=== PATIENT | male | born 1935 | race Caucasian/White ===

== ENCOUNTER → 2016-10-03 | Outpatient (CLI) | payer BC ==
[~2016-10-03] MED LIST: ATOR10TA82 PO; BRIM0.159 OPB; BRIM0.1S OPB; DOCU100T7 PO; DUTA0.5C PO; HYDR-5688 PO; HYT/2 PO; MULT-506 PO; OMEP40CA41 PO; TIMO0.5S2 OP
[2016-10-03 15:16] LABS: CALCIUM 9.3 mg/dl (8.5-10.1)
[2016-10-03 15:23] LABS: ALT/SGPT 22 U/L (12-78); AST/SGOT 18 U/L (15-37); BLOOD UREA NITROGEN 13 mg/dl (7-18); BUN/CREATININE RATIO 11.8 (10-20); CARBON DIOXIDE 28 mmol/L (21-32); CHLORIDE 109 mmol/L (98-107); GLUCOSE 100 mg/dl (70-99); POTASSIUM 4.1 mmol/L (3.5-5.1); SODIUM 141 mmol/L (136-145)
[2016-10-03 15:32] LABS: ALB/GLOB RATIO 1.2 (0.9-2); ALKALINE PHOSPHATASE 70 U/L (45-117); FERRITIN 100.9 ng/ml (8.0-388.0); TOTAL IRON BINDING CAPACITY 233 mcg/dl (250-450)
--- NOTE | 2016-10-08 08:50 | CODING QUERY MEDICAL NECESSITY ---
CQSUPPORTING DIAGNOSIS NEEDED A supporting diagnosis is required for the test/procedure performed on this patient in order for us to be reimbursed by the patient's insurance. Please provide a supporting diagnosis for the following test/procedure listed below next to the test name along with your signature. *If there is no additional diagnosis for this patient that would support the following test/procedure please document that below next to the test/procedure. Test(s)/Procedure(s) that require a supporting diagnosis: DOS 10/03/16 VITAMIN B12 Provider Signature: Date: Thank you Opal Toribio [employer] Once completed, please kindly fax back to [phone] For questions please call [phone]
== END | disposition home or self-care (01) ==
LOC: C.LABBC 09:59
PROVIDERS: ATTEND Family Medicine
DX: R41.89 Other symptoms and signs involving cognitive functions and awareness (principal); I10 Essential (primary) hypertension; D64.9 Anemia, unspecified

== ENCOUNTER → 2016-11-05 | Outpatient (CLI) | payer BC ==
[~2016-11-05] MED LIST changes: +GADAVIST IV PRN
--- NOTE | 2016-11-06 08:18 | DIAGNOSTIC IMAGING REPORT ---
MRI OF THE ABDOMEN WITH AND WITHOUT CONTRAST PANCREAS PROTOCOL CLINICAL HISTORY: Pancreatic mass. COMPARISON STUDY: Abdominal CTs March 28, 2015 and August 11, 2015. TECHNIQUE: Utilizing a 1.5 Yanni magnet and dedicated coil, multiplanar, multiecho imaging of the abdomen was performed pre and postcontrast administration. Post contrast imaging was performed utilizing dynamic enhancement. Injection of 9 cc of Gadavist IV was uneventful. FINDINGS: Pancreatic glandular atrophy is again noted. There is no pancreatic or biliary ductal dilatation. A 2.5 x 2.1 cm lobulated T2 hyperintense nonenhancing lesion arising from the pancreatic tail is only minimally increased in size since CT of March 28, 2015 when it measured 2.3 x 2.1 cm. There are numerous additional smaller cystic pancreatic lesions. In retrospect, these were likely present on prior CT. There are no enhancing pancreatic lesions. The liver, right adrenal gland and spleen are normal. A 1.2 cm left adrenal nodule is unchanged since prior exam. This is benign given stability. There is no upper abdominal adenopathy or ascites. Numerous T2 hyperintense nonenhancing bilateral renal lesions reflect cysts. IMPRESSION: 1. 2.5 x 2.1 cm lobulated cystic pancreatic tail lesion with minimal increase in size since exam of March 28, 2015. This suggests a side branch IPMN and has benign imaging characteristics. Numerous additional smaller cystic pancreatic lesions likely also reflect IPMNs. No pancreatic ductal dilatation. 2. Numerous renal cysts. Electronically signed by: Rodriguez Main M.D. 11/06/2016 8:17 AM Dictated Date/Time: 11/05/2016 4:33 PM
== END | disposition home or self-care (01) ==
LOC: C.MRI 13:54
PROVIDERS: ATTEND Internal Medicine Hematology & Oncology
DX: D13.6 Benign neoplasm of pancreas (principal)

== ENCOUNTER → 2016-12-27 | Outpatient (CLI) | payer BC ==
[~2016-12-27] MED LIST changes: -ATOR10TA82 PO; +ATOR10TA88 PO; -GADAVIST IV PRN
--- NOTE | 2016-12-27 11:52 | DIAGNOSTIC IMAGING REPORT ---
ABDOMEN 2VIEW W/PA CHEST RTN CLINICAL HISTORY: K59.00 [id number] pain. Constipation. COMPARISON STUDY: 03/30/2015 FINDINGS: Lungs are clear. Mild tortuosity thoracic aorta. Mild increase in fecal load throughout the colon. No evidence for fecal impaction. A component of fecal stasis may be present. As shape scoliosis of the lumbar spine. IMPRESSION: 1. Negative chest. 2. Moderate increase in fecal load within the colon consistent with a component of fecal stasis. 3. No evidence for rectal fecal impaction. The above report was generated using voice recognition software. It may contain grammatical, syntax or spelling errors. Electronically signed by: Campos Orellana M.D. 12/27/2016 11:51 AM Dictated Date/Time: 12/27/2016 11:49 AM
== END | disposition home or self-care (01) ==
LOC: C.RAD1850 11:30
PROVIDERS: ATTEND Physician Assistant
DX: K59.00 Constipation, unspecified (principal)

== ENCOUNTER → 2017-01-01 | Outpatient (CLI) | payer BC ==
[~2017-01-01] MED LIST changes: +OPTIRAY 320 IV PRN
--- NOTE | 2017-01-01 13:42 | DIAGNOSTIC IMAGING REPORT ---
ABD/PELVIS IV AND ORAL CONT HISTORY: 81 years-old Male R19.4 Change in bowel [id number] Abdominal [id number] COMPARISON: CT abdomen 08/11/2015, MR of the abdomen 11/05/2016, CT abdomen and pelvis 03/28/2015 TECHNIQUE: Multiple axial CT images of the abdomen and pelvis were obtained following the intravenous administration of 92 mL Optiray 320. Oral contrast was also used. A dose lowering technique was used consistent with the principals of [place]. FINDINGS: There is minimal bibasilar atelectasis and a subsegmental distribution. Thin-walled cysts are noted within the right lung base. There is no pneumoperitoneum. The imaged inferior cardiac chambers are unremarkable with a trace pericardial effusion. Gallbladder is mildly contracted. The liver, spleen and right adrenal gland are unremarkable. There is nodular thickening of the left adrenal gland which is unchanged. Severe pancreatic atrophy is again noted with a lobulated low attenuating 2.6 x 2.1 x 2.2 cm lesion of the pancreatic tail which appears stable from comparison. Multiple low attenuating lesions of the kidneys bilaterally are seen suggesting cysts, largest of which involves the superior pole right kidney, 2.6 x 2.5 cm. No renal calculi or hydronephrosis. Prostate is enlarged with central calcifications. There is a small diverticulum along the right lateral aspect of the urinary bladder, 1.7 x 0.7 cm. Additional smaller diverticula are also noted suggesting sequela of chronic bladder outlet obstruction. There is moderate atherosclerosis of the abdominal aorta. No bulky retroperitoneal adenopathy. Moderate volume of formed stool is again seen throughout the colon. Scattered noninflamed colonic diverticula are noted. Again seen is twisting with decreased caliber of the mid sigmoid colon which is a chronic finding. No associated obstruction. There is a small fat filled periumbilical hernia, diastases 1.6 cm. There is convex left curvature of the lumbar spine with multilevel advanced degenerative changes present. IMPRESSION: 1. No acute intra-abdominal or intrapelvic abnormality identified. No bowel obstruction. 2. Colonic diverticulosis without diverticulitis. 3. Stable appearance of the lobulated cystic-appearing lesion of the pancreatic tail suggesting sidebranch IPMN as seen on comparison MR of the abdomen. 4. Prostamegaly with evidence of chronic bladder outlet obstruction. The above report was generated using voice recognition software. It may contain grammatical, syntax or spelling errors. Electronically signed by: Galindo Hogan M.D. 01/01/2017 1:40 PM Dictated Date/Time: 01/01/2017 1:02 PM
== END | disposition home or self-care (01) ==
LOC: C.CTS 10:18
PROVIDERS: ATTEND Physician Assistant
DX: R19.4 Change in bowel habit (principal); R10.9 Unspecified abdominal pain; K57.30 Diverticulosis of large intestine without perforation or abscess without bleeding

== ENCOUNTER → 2017-01-07 | Day surgery (SDC) | payer BC ==
[2017-01-01 15:09] VITALS: Ht 180.3 cm; Wt 88.2 kg
[~2017-01-07] VITALS: Ht 180.3 cm; Wt 88.2 kg
[~2017-01-07] MED LIST changes: -BRIM0.159 OPB; -HYDR-5688 PO; +LIDOCAINE HCL 2% 2 ML VIAL (20MG/ML) ONE; -OMEP40CA41 PO; -OPTIRAY 320 IV PRN; +PHENYLEPHRINE 100MCG/ML 5ML SYR ONE; +PROPOFOL IV EMULSION 10 MG/ML 20 ML VIAL IV ONE; +SODIUM CHLORIDE 0.9% 500ML 500 ML IV ONE
--- NOTE | 2017-01-07 09:26 | Endo History and Physical ---
History & Physical Date of Service: Jan 07, 2017. Chief Complaint: Abdominal pain, change in bowel habits, abnormal ct scan Referring Physician: Dr. Feliz Roberts History of Present Illness 81 yo CM who presents for colonoscopy secondary to abdominal pain, change in bowel habits and abnormal CT Scan. Past Medical History High Cholesterol, Hypertension Past Surgical History Hx Cardiac Surgery: No Hx Internal Defibrillator: No Hx Pacemaker: No Hx Abdominal Surgery: No Hx of Implantable Prosthesis: No Hx Post-Op Nausea and Vomiting: No Hx Cancer Surgery: No Hx Thoracic Surgery: No Hx Orthopedic: Yes (RT/LEFT TKA) Hx Urinary Tract Surgery: Yes (LITHOTRIPSY) Family History None Social History Smoking Status: Former Smoker Hx Substance Use: No Hx Alcohol Use: No Allergies Coded Allergies: No Known Allergies (Verified , 01/01/17) Current Medications Reported Home Medications Medications Dose Route/Sig Max Daily Dose Days Date Category Timoptic-Xe 0.5% Oph (Timolol Maleate (Ophth)) 0.5 % Racheal 1 Drops OP DAILY 01/01/17 Reported Hytrin (Terazosin HCl) 2 Mg Cap 2 Mg PO QAM 01/01/17 Reported Avodart (Dutasteride) 0.5 Mg Cap 0.5 Mg PO QAM 01/01/17 Reported Stool Softener (Docusate Sodium) 100 Mg Tab 1 Tab PO QAM 01/01/17 Reported Multivitamin (Multivitamins) Tab 1 Tab PO QAM 01/01/17 Reported Lipitor (Atorvastatin Calcium) 10 Mg Tab 10 Mg PO QAM 01/01/17 Reported Alphagan P Oph (Brimonidine Tartrate) 0.1 % Racheal 1 Drop OPB DAILY 01/01/17 Reported Vital Signs Weight (Kilograms): 88.18 Height (Feet): 5 Height (Inches): 11 Date Time Temp Pulse Resp B/P (MAP) Pulse Ox O2 Delivery O2 Flow Rate FiO2 01/07/17 09:10 36.4 68 18 117/81 (93) 98 Room Air Physical Exam General Appearance: WD/WN, no apparent distress Respiratory/Chest: Auscultation: breath sounds normal Cardiovascular: Heart Auscultation: RRR Abdomen: Bowel Sounds: normal Inspection & Palpation: soft, non-distended, no tenderness, guarding & rebound Assessment and Plan Assessment: 81 yo CM who presents for colonoscopy secondary to abdominal pain, change in bowel habits and abnormal CT Scan. Plan: Proceed with colonoscopy.
--- NOTE | 2017-01-07 09:54 | Discharge Instructions ---
Endoscopy Patient Instructions Date / Procedure(s) Performed Jan 07, 2017. Colonoscopy Allergy Information Coded Allergies: No Known Allergies (Verified , 01/01/17) Discharge Date / Findings Jan 07, 2017. Colon polyp Diverticulosis Internal hemorrhoids Medication Instructions OK to resume all medications today as prescribed Reported Home Medications Medications Dose Route/Sig Max Daily Dose Days Date Category Timoptic-Xe 0.5% Oph (Timolol Maleate (Ophth)) 0.5 % Racheal 1 Drops OP DAILY 01/01/17 Reported Hytrin (Terazosin HCl) 2 Mg Cap 2 Mg PO QAM 01/01/17 Reported Avodart (Dutasteride) 0.5 Mg Cap 0.5 Mg PO QAM 01/01/17 Reported Stool Softener (Docusate Sodium) 100 Mg Tab 1 Tab PO QAM 01/01/17 Reported Multivitamin (Multivitamins) Tab 1 Tab PO QAM 01/01/17 Reported Lipitor (Atorvastatin Calcium) 10 Mg Tab 10 Mg PO QAM 01/01/17 Reported Alphagan P Oph (Brimonidine Tartrate) 0.1 % Racheal 1 Drop OPB DAILY 01/01/17 Reported Provider Instructions Activity Restrictions - No exercising or heavy lifting for 24 hours. - Do not drink alcohol the day of the procedure. - Do not drive a car or operate machinery until the day after the procedure. - Do not make any important decisions or sign important papers in 24 hours after the procedure. Following Day: - Return to full activity which may include returning to work/school. Diet Start your diet with liquids and light foods (jello, soup, juice, toast). Then eat your usual diet if not nauseated. Treatment For Common After Affects For mild abdominal pain, bloating, or excessive gas: - Rest - Eat lightly - Lie on right side Follow-Up Information Follow-up with Dr. Feliz Roberts as scheduled Anesthesia Information What You Should Know You have had a procedure that required some medicine to reduce anxiety and discomfort. This treatment is called moderate sedation. After receiving the treatment, you may be sleepy, but you will be able to breathe on your own. The effects of the treatment may last for several hours. Follow these instructions along with Activity/Diet recommendations noted above: * Do NOT do anything where dizziness or clumsiness would be dangerous. * Rest quietly at home today, then you can be up and about tomorrow. * Have a responsible person stay with you the rest of today. * You may have had an I.V. today. If so, you may take the dressing off later today. Recommendations Call your doctor if: * Trouble breathing * Continuous vomiting for more than 24 hours * Temperature above 101 degrees * Severe abdominal pain or bloating * Pain not relieved by pain medicine ordered * There is increased drainage or redness from any incision * A large amount of rectal bleeding greater than 2-3 tablespoons. (If you had a polyp/s removed or have hemorrhoids, a small amount of blood - from the rectum is to be expected.) * You have any unanswered questions or concerns. IN THE EVENT OF A SERIOUS EMERGENCY, GO TO THE NEAREST EMERGENCY ROOM Your discharge instructions were prepared by provider Yaya Mendoza. Patient Instructions Signature Page Piyush Rios Patient (or Guardian) Signature/Date: I have read and understand the instructions given to me by my caregivers. Caregiver/RN/Doctor Signature/Date: The above-named patient and/or guardian has received patient instructions on this date. + Original Patient Signature Page (only) stays with chart. Please make copy for patient.
--- NOTE | 2017-01-07 10:06 | GI REPORT ---
Procedure Date: 01/07/2017 9:21 AM Procedure: Colonoscopy Indications: Generalized abdominal pain, Abnormal CT of the GI tract Medicines: Monitored Anesthesia Care Complications: No immediate complications. Estimated Blood Loss: Estimated blood loss: none. Procedure: Pre-Anesthesia Assessment: - Prior to the procedure, a History and Physical was performed, and patient medications and allergies were reviewed. The patient's tolerance of previous anesthesia was also reviewed. The risks and benefits of the procedure and the sedation options and risks were discussed with the patient. All questions were answered, and informed consent was obtained. Prior Anticoagulants: The patient has taken no previous anticoagulant or antiplatelet agents. ASA Grade Assessment: III - A patient with severe systemic disease. After reviewing the risks and benefits, the patient was deemed in satisfactory condition to undergo the procedure. After I obtained informed consent, the scope was passed under direct vision. Throughout the procedure, the patient's blood pressure, pulse, and oxygen saturations were monitored continuously. The scope was introduced through the anus and advanced to the terminal ileum. The colonoscopy was performed without difficulty. The patient tolerated the procedure well. The quality of the bowel preparation was good. The terminal ileum, ileocecal valve, appendiceal orifice, and rectum were photographed. Findings: A 4 mm polyp was found in the transverse colon. The polyp was sessile. The polyp was removed with a cold snare. Resection and retrieval were complete. Scattered small-mouthed diverticula were found in the entire colon. Non-bleeding internal hemorrhoids were found during retroflexion. The hemorrhoids were small. Impression: - One 4 mm polyp in the transverse colon, removed with a cold snare. Resected and retrieved. - Diverticulosis in the entire examined colon. - Non-bleeding internal hemorrhoids. Recommendation: - Resume previous diet. - Continue present medications. - Repeat colonoscopy for surveillance based on pathology results. - Return to primary care physician as previously scheduled. Yaya Mendoza, DO 01/07/2017 10:05:43 AM This report has been signed electronically. Note Initiated On: 01/07/2017 9:21 AM I attest to the content of the Intraoperative Record and orders documented therein, exceptions below
[2017-01-07 10:21] VITALS: BP 105/78; PULSE 83; O2SAT 99
--- NOTE | 2017-01-07 10:41 | Anesthesiology Progress Note ---
Anesthesia Post Op Note Date & Time Jan 07, 2017 at 10:41 Vital Signs Pain Intensity: 0 Vital Signs Past 12 Hours Date Time Temp Pulse Resp B/P (MAP) Pulse Ox O2 Delivery O2 Flow Rate FiO2 01/07/17 10:21 83 18 105/78 (87) 99 Room Air 01/07/17 10:06 83 18 98/67 (77) 97 Room Air 01/07/17 09:51 64 12 108/76 (87) 98 Room Air 01/07/17 09:10 36.4 68 18 117/81 (93) 98 Room Air Notes Mental Status: alert / awake / arousable, participated in evaluation Pt Amnestic to Procedure: Yes Nausea / Vomiting: adequately controlled Pain: adequately controlled Airway Patency, RR, SpO2: stable & adequate BP & HR: stable & adequate Hydration State: stable & adequate Anesthetic Complications: no major complications apparent
== END | disposition home or self-care (01) ==
LOC: C.GI 08:45
PROVIDERS: ATTEND Internal Medicine
DX: R10.84 Generalized abdominal pain (principal); R19.4 Change in bowel habit; D12.3 Benign neoplasm of transverse colon; K57.30 Diverticulosis of large intestine without perforation or abscess without bleeding; K64.8 Other hemorrhoids; R93.3 Abnormal findings on diagnostic imaging of other parts of digestive tract; E78.00 Pure hypercholesterolemia, unspecified; I10 Essential (primary) hypertension; Z96.653 Presence of artificial knee joint, bilateral; Z87.891 Personal history of nicotine dependence

== ENCOUNTER → 2017-09-24 | Outpatient (CLI) | payer BC ==
[~2017-09-24] MED LIST changes: +ATOR10TA82 PO; -ATOR10TA88 PO; -LIDOCAINE HCL 2% 2 ML VIAL (20MG/ML) ONE; -PHENYLEPHRINE 100MCG/ML 5ML SYR ONE; -PROPOFOL IV EMULSION 10 MG/ML 20 ML VIAL IV ONE; -SODIUM CHLORIDE 0.9% 500ML 500 ML IV ONE
[2017-09-24 09:38] LABS: BASO % 0.4 %; BASO ABS # 0.02 K/uL (0-0.2); EOS % 0.6 %; EOS ABS # 0.03 K/uL (0-0.5); HEMATOCRIT 39.9 % (42-52); HEMOGLOBIN 13.8 g/dL (14.0-18.0); LYMPH % 31.2 %; LYMPH ABS # 1.54 K/uL (1.2-3.4); MEAN CORPUSCULAR HEMOGLOBIN 32.2 pg (25-34); MEAN CORPUSCULAR HGB CONC 34.6 g/dl (32-36); MEAN PLATELET VOLUME 9.8 fL (7.4-10.4); MONO % 11.3 %; MONO ABS # 0.56 K/uL (0.11-0.59); NEUT % 56.5 %; NEUT ABS # 2.79 K/uL (1.4-6.5); PLATELET COUNT 164 K/uL (130-400); RED CELL DISTRIBUTION WIDTH CV 13.5 % (11.5-14.5); RED CELL DISTRIBUTION WIDTH SD 45.9 fL (36.4-46.3); WHITE BLOOD COUNT 4.94 K/uL (4.8-10.8)
[2017-09-24 10:11] LABS: ALBUMIN 3.6 gm/dl (3.4-5.0); ALT/SGPT 18 U/L (12-78); AST/SGOT 20 U/L (15-37); BLOOD UREA NITROGEN 16 mg/dl (7-18); CALCIUM 8.6 mg/dl (8.5-10.1); CARBON DIOXIDE 27 mmol/L (21-32); GLUCOSE 112 mg/dl (70-99); POTASSIUM 3.9 mmol/L (3.5-5.1); SODIUM 140 mmol/L (136-145)
[2017-09-24 10:15] LABS: ALKALINE PHOSPHATASE 65 U/L (45-117); TOTAL PROTEIN 6.7 gm/dl (6.4-8.2)
== END | disposition home or self-care (01) ==
LOC: C.LAB1850 08:39
PROVIDERS: ATTEND Internal Medicine Hematology & Oncology
DX: D13.6 Benign neoplasm of pancreas (principal)

== ENCOUNTER → 2017-10-09 | Outpatient (CLI) | payer BC ==
[~2017-10-09] MED LIST changes: +GADAVIST IV PRN
--- NOTE | 2017-10-09 20:57 | DIAGNOSTIC IMAGING REPORT ---
MRI OF THE ABDOMEN COMBO CLINICAL HISTORY: Pancreatic mass. COMPARISON STUDY: Abdominal CT dated 01/01/2017. Abdominal MRI dated 11/05/2016. TECHNIQUE: MRI of the abdomen is performed transverse T1 and T2-weighted sequences in the axial and coronal planes. Contrast enhanced sequences were acquired following the IV administration of 8.3 cc of Gadavist. Subtraction imaging was utilized. MRCP images were obtained and assessed with 3-D reformats. The Examination is degraded by motion artifact. FINDINGS: Lower chest: No pleural effusion is identified. The heart is top normal in size and without pericardial effusion. There is a tiny hiatal hernia. Liver: The liver is normal in size, contour, and signal intensity. No intrahepatic biliary ductal dilatation is seen. The hepatic veins and portal veins are patent. MRCP: The gallbladder is normal in appearance. No gallstones are identified. The common bile duct measures up to 5 mm in diameter. There is no evidence of choledocholithiasis. The pancreatic duct is normal in caliber. Spleen: Normal in size and signal intensity. Pancreas: The pancreas is atrophic. A multilobulated cystic lesion in the pancreatic tail has modestly increased in size dating back to 11/05/2016, now measuring 3.0 x 2.3 cm (previously measured 2.5 x 2.1 cm). 2 additional similar-appearing lesions are seen in the pancreatic head measuring up to 10 mm. At least 5 additional lesions are seen in the pancreatic body and tail measuring up to 8 mm. Adrenal glands: Unremarkable. Kidneys: The kidneys are atrophic and without hydronephrosis. The kidneys enhance and excrete symmetrically. Bilateral renal cysts measure up to 2.5 cm. Abdominal aorta: Normal in course and caliber. Bowel: Visualized portions of the small bowel and colon show no evidence of obstruction. There is moderate colonic fecal retention. Peritoneum: There is no abdominal ascites. Lymphadenopathy: None. Skeletal structures: Visualized skeletal structures times are normal marrow signal intensity. IMPRESSION: 1. A lobulated cystic lesion in the pancreatic tail has modestly increased in size dating back to 11/05/2016, now measuring 3.0 x 2.3 cm. The top considerations remain a large IPMN vs. mucinous cystic neoplasm. If further assessment is desired then endoscopic ultrasound with biopsy would be appropriate. 2. There are at least 7 additional similar-appearing cystic lesions throughout the pancreas measuring up to 10 mm. Differential considerations are the same. 3. Moderate constipation. Electronically signed by: Savage Leslie M.D. 10/09/2017 8:56 PM Dictated Date/Time: 10/09/2017 8:43 PM
== END | disposition home or self-care (01) ==
LOC: C.MRI 19:15
PROVIDERS: ATTEND Internal Medicine Hematology & Oncology
DX: D13.6 Benign neoplasm of pancreas (principal); K59.00 Constipation, unspecified